=== PATIENT | female | born 1990 | race Caucasian/White ===

== ENCOUNTER 2016-12-26 14:56 | Emergency (ER) | payer OTHER ==
[2016-12-26 15:48] LABS: SPECIFIC GRAVITY 1.015 (1.001-1.030); URINE BILIRUBIN NEGATIVE (NEGATIVE); URINE BLOOD 1+ (NEGATIVE); URINE GLUCOSE (UA) NEGATIVE (NEGATIVE); URINE LEUKOCYTE ESTERASE NEGATIVE (NEGATIVE); URINE NITRITE NEGATIVE (NEGATIVE); URINE PROTEIN TRACE (NEGATIVE); URINE UROBILINOGEN NORMAL (0-1 mg/dl)
[2016-12-26 15:49] LABS: URINE APPEARANCE CLEAR; URINE COLOR YELLOW
[2016-12-26 16:07] LABS: URINE BACTERIA FEW; URINE EPITHELIAL CELLS 0-2 /hpf; URINE WBC 0-1 /hpf
--- NOTE | 2016-12-26 16:40 | US ---
PELVIC ULTRASOUND HISTORY: 3 days , vaginal bleeding.. Transabdominal pelvic sonography performed. Patient refused transvaginal imaging. TRANSABDOMINAL IMAGING UTERINE DIMENSIONS: 17.5 x 9.1 x 7.6 cm. BLADDER: No abnormal filling defect. TRANSVAGINAL IMAGING: ENDOMETRIAL THICKNESS: 5.8 mm. No gross hypervascular focus is identified. FOCAL UTERINE LESIONS: Small irregular cystic focus of the anterior uterus, 1.9 cm in size. RIGHT OVARY: 2.4 x 2.0 x 1.1 cm for a volume of 2.7 cc. LEFT OVARY: 2.9 x 1.3 x 1.0 cm for volume of 2.0 cc. OVARIAN BLOOD FLOW: Documented bilaterally. DOMINANT ADNEXAL LESIONS: No dominant lesion noted. Simple left ovarian cyst approximately 1.6 cm. FREE FLUID: None. IMPRESSION: 1. Transabdominal imaging performed only, patient refused transvaginal imaging. To these limits, no gross residual thickening or hypervascular endometrial focus identified. 2. Hypoechoic 1.9 cm fluid collection of the anterior uterus which may reflect a small hematoma, consider short-term follow-up to ensure stability or regression. 3. No dominant adnexal lesion or gross free fluid.
== END 2016-12-26 17:56 | disposition home or self-care (01) ==
LOC: ED 14:56
DX: O72.2 Delayed and secondary postpartum hemorrhage (principal); Z37.0 Single live birth